=== PATIENT | male | born 1940 | race Caucasian/White ===

== ENCOUNTER 2019-03-18 13:57 | Emergency (ER) | payer MEDICARE, MEDICAID ==
[~2019-03-18] VITALS: Ht 182.9 cm; Wt 93.0 kg
[~2019-03-18 13:57] MED LIST: ROSU10TA2 PO; TAMS-3 PO
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
--- NOTE | 2019-03-18 14:31 | NUR ---
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 accompanied by Jourdan ([facility]). Pt is stable and not in any form of distress, AOx4.
[2019-03-18] MEDS ORDERED: ULORIC 40 MG (14:49)
[2019-03-18] MEDS ORDERED: FINASTERIDE 5 MG (14:49)
--- NOTE | 2019-03-18 15:24 | NUR ---
Patient is resting comfortably on gurney while reading a newspaper.NAD.
--- NOTE | 2019-03-18 15:37 | NUR ---
Patient discharged to home in stable conditon. Written and verbal after care instructions given. Patient verbalizes understanding of instructions. ALL BELONGINGS WITH PATIENT, AMBULATORY. DENIES PAIN
[2019-03-18 15:41] VITALS: BP 150/90
== END 2019-03-18 15:39 | disposition home or self-care (01) ==
LOC: ER 13:57
DX: S20.212A Contusion of left front wall of thorax, initial encounter (principal); I10 Essential (primary) hypertension; Z88.1 Allergy status to other antibiotic agents; Z79.899 Other long term (current) drug therapy; V89.2XXA Person injured in unspecified motor-vehicle accident, traffic, initial encounter; Y93.89 Activity, other specified; Y92.89 Other specified places as the place of occurrence of the external cause; Y99.8 Other external cause status
CPT/HCPCS: 71046; 71120; 93005; A4663

== ENCOUNTER 2019-11-28 14:12 | Emergency (ER) | payer MEDICARE, OTHER ==
--- NOTE | 2019-11-28 14:31 | NUR ---
Patient left without being triaged. Patient stated he will just see his primary care provider tomorrow.
--- NOTE | 2019-11-28 14:31 | NUR ---
PT DECIDED TO SEE HIS DOCTOR TOMORROW. LEFT ANDREIA IN THE MIDDLE OF TRIAGE.
== END 2019-11-28 14:32 | disposition left against medical advice (07) ==
LOC: ER 14:17
DX: Z53.21 Procedure and treatment not carried out due to patient leaving prior to being seen by health care provider (principal)